=== PATIENT | female | born 1960 | race Hispanic/Latino ===

== ENCOUNTER 2017-10-12 14:57 | Day surgery (SDC) | payer OTHER ==
[~2017-10-12 14:57] MED LIST: FLAGYL 500 MG/100 ML 500 MG/100 ML BAG IV SCH; NACL 0.9% 1000 ML 1,000 ML IV SCH; PEPCID PO NR; VERSED IV NR
[2017-10-12] MEDS ORDERED: PERCOCET 5/325 PO PRN (15:50)
[2017-10-12] MEDS ORDERED: ZOFRAN IV PRN (15:50)
[2017-10-12] MEDS ORDERED: MORPHINE IV PRN (15:50)
--- NOTE | 2017-10-12 15:51 | Anesthesia Consultation ---
Anesthesia Consult and Med Hx Date of service: 10/12/17 - Airway Anesthetic Teeth Evaluation: Dentures, Edentulous ROM Head & Neck: Adequate Mental/Hyoid Distance: Adequate Mallampati Class: Class II Intubation Access Assessment: Probably Good - Pulmonary Exam CTA: Yes - Cardiac Exam Cardiac Exam: RRR - Pre-Operative Health Status ASA Pre-Surgery Classification: ASA3 Proposed Anesthetic Plan: General - Pulmonary Hx Smoking: Yes (/ PPD X 37 YRS) Hx Asthma: Yes COPD: Yes (INHALER PRN) Hx Sleep Apnea: No (SHERYL PRE SCREEN HIGH RISK) - Cardiovascular System Hx Hypertension: No - Central Nervous System Hx Seizures: No CVA: No Hx Back Pain: Yes (FROM STONE) Hx Psychiatric Problems: Yes (bipolar, anxiety) - Endocrine Hx Renal Disease: No (stones) Hx Insulin Dependent Diabetes: No Hx Thyroid Disease: No Hx Hyperthyroidism: No - Other Systems Hx Cancer: No Hx Obesity: Yes
--- NOTE | 2017-10-12 15:51 | Anesthesia Day of Surgery ---
Anesthesia Day of Surgery - Day of Surgery Patient Examined: Yes Patient is NPO: Yes
[2017-10-12] MEDS ORDERED: PEPCID PO NR (16:00)
[2017-10-12] MEDS ORDERED: NACL BACTERIOSTATIC INFILTRATI ONE (16:06)
[2017-10-12] MEDS ORDERED: FLAGYL 500 MG/100 ML 500 MG/100 ML BAG IV SCH (17:00)
[2017-10-12] MEDS ORDERED: XYLOCAINE MPF 2% ONE (17:16)
[2017-10-12] MEDS ORDERED: DILAUDID ONE (17:16)
[2017-10-12] MEDS ORDERED: DIPRIVAN 10 MG/ML IV ONE (17:16)
[2017-10-12] MEDS ORDERED: NEO SYNEPHRINE/NS Syringe(OR USE) IV ONE (17:30)
[2017-10-12] MEDS ORDERED: ZOFRAN ONE (17:37)
[2017-10-12] MEDS ORDERED: ePHEDrine SULFATE ONE (17:43)
--- NOTE | 2017-10-12 18:01 | Short Stay Summary ---
Short Stay Documentation Date of service: 10/12/17 - History H&P: obtained from office - Allergies and Medications Current Medications: Allergies Penicillins Allergy (Verified 10/11/17 12:45) Shortness of Breath/ SWELLING Home Medications Medication Instructions Recorded Confirmed Last Taken Type ALBUTEROL Inhaler [Proair] 2 puff IH QID PRN 10/11/17 10/11/17 10/11/17 History Aspirin [Lo-Dose Aspirin EC] 81 mg PO DAILY 10/11/17 10/12/17 1 Week Ago History ~10/05/17 Calcium Carbonate [Calcium] 600 mg PO DAILY 10/11/17 10/11/17 10/12/17 10:00 History Cholecalciferol (Vitamin D3) 5,000 unit PO DAILY 10/11/17 10/11/17 10/12/17 10: 00 History [Vitamin D3] Citalopram Hydrobromide 40 mg PO DAILY 10/11/17 10/11/17 10/11/17 History [Citalopram HBr] Cyanocobalamin (Vitamin B-12) 2,500 mcg PO DAILY 10/11/17 10/11/17 10/12/17 10: 00 History [Vitamin B12] Gabapentin [Neurontin] 300 mg PO TID 10/11/17 10/11/17 10/12/17 10:00 History Omeprazole 40 mg PO DAILY 10/11/17 10/11/17 10/11/17 History carBAMazepine [TEGretol] 200 mg PO BID 10/11/17 10/11/17 10/11/17 History clonazePAM [ Klonopin] 0.5 mg PO TID 10/11/17 10/11/17 10/11/17 History risperiDONE [Risperdal] 2 mg PO BID 10/11/17 10/11/17 10/11/17 History Active Medications Famotidine (Pepcid) 20 mg PO PREOP NR Stop: 10/12/17 23:59 Last Admin: 10/12/17 16:30 Dose: 20 mg Sodium Chloride (Nacl 0.9% 1000 Ml) 1,000 mls @ 75 mls/hr IV DIRECT JUAN PABLO Last Admin: 10/12/17 16:30 Dose: 75 mls/hr Metronidazole (Flagyl 500 Mg/100 Ml) 500 mg in 100 mls @ 100 mls/hr IV PREOP JUAN PABLO Midazolam HCl (Versed) 2 mg IV PREOP NR Stop: 10/12/17 23:59 Last Admin: 10/12/17 16:43 Dose: 2 mg Morphine Sulfate (Morphine) 2 mg IV Q10MIN PRN PRN Reason: Pain, Moderate (4-6) Ondansetron HCl (Zofran) 4 mg IV ONCE PRN PRN Reason: Nausea And Vomiting Oxycodone/Acetaminophen (Percocet 5/325) 1 tab PO ONCE PRN PRN Reason: Pain, Moderate (4-6) - Brief post op/procedure progress note Date of procedure: 10/12/17 Pre-op diagnosis: rt renal stones Post-op diagnosis: same Procedure: eswl-----staged Anesthesia: GETA Surgeon: MIGNON RIVERA Estimated blood loss: none Pathology: none Condition: stable - Hospital course Hospital course: percocet 5/325,flomax,strainer, post op info - Disposition Condition at discharge: Stable Disposition: DC-01 TO HOME OR SELFCARE Short Stay Discharge Plan Follow up with: MALIHA HAUSER MD [Primary Care Provider] - 7 Days
--- NOTE | 2017-10-12 18:14 | Post Anesthesia Evaluation ---
- Post Anesthesia Evaluation Patient Participated: Yes Airway Patent: Yes Stable Respiratory Function: Yes Nausea/Vomiting: No Temp > 96.8F: Yes Pain Manageable: Yes Adequeate Hydration: Yes Anesthesia Complications: No Block Receding Appropriately: Not Applicable Patient on Ventilator: No
[2017-10-12 18:53] VITALS: BP 107/61
--- NOTE | 2017-10-12 20:01 | Operative Report ---
PREOPERATIVE DIAGNOSIS: Left renal calculi. POSTOPERATIVE DIAGNOSIS: Left renal calculi. PROCEDURE: Left extracorporal shock wave lithotripsy (staged). SURGEON: Davy Stanford MD ANESTHESIA: General. ANESTHESIOLOGIST: Dr. Rosales ESTIMATED BLOOD LOSS: Minimal. FLUIDS: Crystalloid. COMPLICATIONS: No complications. INDICATIONS: This 57-year-old female with history of left flank pain. CT of abdomen and pelvis revealed a 2 cm left renal stone as well as right renal cyst. 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 Discussed options, she agreed to proceed with surgical intervention. DESCRIPTION OF PROCEDURE: The patient was taken to the operative suite, placed in a supine position. After adequate general anesthesia, the stone was localized in 2 planes using fluoroscopy. At the time of surgery now appears that she has 2 stones, a 5 mm proximal ureteral stone and a 15 mm renal pelvic stone. Extracorporal shock wave lithotripsy was administered with a maximum kV of 6 focusing on the proximal ureteral stone for 500 shocks and then 2000 shocks was administered to the larger 15 mm stone. It appears to have adequate fragmentation. The patient tolerated the procedure well. She will go home on Flomax and Percocet. Follow up in the office. JOB# [id number] OCTAVIOC/KEILY
== END 2017-10-12 14:58 | disposition home or self-care (01) ==
LOC: OR 14:57
PROVIDERS: ATTEND Urology
DX: N20.0 Calculus of kidney (principal); N28.1 Cyst of kidney, acquired; I10 Essential (primary) hypertension; M47.9 Spondylosis, unspecified; J44.9 Chronic obstructive pulmonary disease, unspecified; E66.9 Obesity, unspecified; F31.9 Bipolar disorder, unspecified; F17.210 Nicotine dependence, cigarettes, uncomplicated; F41.9 Anxiety disorder, unspecified; Z68.35 Body mass index [BMI] 35.0-35.9, adult; Z79.899 Other long term (current) drug therapy; Z79.82 Long term (current) use of aspirin; Z98.51 Tubal ligation status; Z98.890 Other specified postprocedural states; Z88.0 Allergy status to penicillin
CPT/HCPCS: 50590; J1170; J2250; J2370; J2405; J2704; J7030